=== PATIENT | male | born 1955 | race Two or more races ===

== ENCOUNTER 2023-05-03 09:45 | Inpatient (IN) | payer OTHER ==
[~2023-05-03] VITALS: Ht 162.6 cm; Wt 141.7 kg
[2023-05-03] MEDS ORDERED: ASPirin-EC 325mg tab PO ONE ×2 (09:46→10:45)
[2023-05-03] MEDS ORDERED: FUROSEMIDE 40 MG/4 ML VIAL IV ONE (10:45)
[2023-05-03 10:57] LABS: Basophils # (auto) 0 10 ^3/uL (0-0.2); Basophils % (auto) 0.7 % (0.0-2.0); Eosinophils # (auto) 0.5 10 ^3/uL (0-0.8); Eosinophils % (auto) 6.6 % (0.0-7.0); Hematocrit 48.4 % (41.0-53.0); Hemoglobin 15.7 g/dL (13.5-17.5); Lymphocytes # (auto) 1.3 10 ^3/uL (0.4-5.4); Mean Corpuscular Hemoglobin 29.8 pg (28.0-32.0); Mean Corpuscular Hgb Conc. 32.5 g/dL (32.0-36.0); Mean Corpuscular Volume 91.5 fL (80.0-100.0); Monocytes # (auto) 0.8 10 ^3/uL (0-1.3); Monocytes % (auto) 10.8 % (0.0-12.0); Neutrophils # (auto) 4.5 10 ^3/uL (1.6-8.6); Neutrophils % (auto) 63.9 % (37.0-80.0); Nucleated Red Blood Cells % 0.2 %; Red Blood Cells 5.29 10^6/uL (4.5-5.90); Red Cell Distribution Width 14.9 % (11.8-14.3); White Blood Cell 7.1 10^3/uL (4.4-10.8)
[2023-05-03 11:18] LABS: INR 1.15 (0.9-1.15)
[2023-05-03 11:33] VITALS: PULSE 75; RESP 20; O2SAT 86
[2023-05-03 11:51] LABS: Alanine Aminotransferase 18 U/L (7-40); Albumin 3.6 g/dL (3.2-4.8); Alkaline Phosphatase 107 U/L (46-116); Aspartate Aminotransferase 25 U/L (13-40); Blood Urea Nitrogen 12 mg/dL (9-23); Calcium 8.7 mg/dL (8.5-10.1); Carbon Dioxide 34 mmol/L (20-30); Glucose 117 mg/dL (74-106)
[2023-05-03 11:52] LABS: Bilirubin, Total 0.7 mg/dL (0.2-1.0); Total Protein 6.5 g/dL (5.7-8.2)
[2023-05-03] MEDS ORDERED: ALBUTEROL SULF 2.5 MG/0.5ML(0.5%) NEB SOLN NEB PRN (12:30)
[2023-05-03] MEDS ORDERED: ACETAMINOPHEN 325 MG TAB PO PRN (12:30)
[2023-05-03] MEDS ORDERED: MORPHINE SULFATE INJ 2 MG/ml SYRG IV PRN (12:30)
[2023-05-03] MEDS ORDERED: NITROGLYCERIN 0.4 MG SL TAB SL PRN (12:30)
[2023-05-03 12:41] LABS: Anion Gap 2 (5-15); Chloride 102 mmol/L (98-107); Potassium 4.3 mmol/L (3.5-5.1); Sodium 138 mmol/L (136-145)
[2023-05-03 12:47] LABS: Lipase 26 U/L (12-53)
[2023-05-03 13:17] LABS: Triglycerides 88 mg/dL (< 150)
[2023-05-03 13:18] LABS: LDL Cholesterol 108 mg/dL (< 100)
[2023-05-03 13:19] LABS: Cholesterol 163 mg/dL (< 200); HDL Cholesterol 48 mg/dL (40-59)
[2023-05-03 13:40] LABS: Urine Bacteria FEW /hpf (None Seen); Urine Blood Negative /uL (Negative); Urine Clarity Clear (Clear); Urine Color Colorless (Yellow); Urine Mucus FEW (None Seen); Urine Protein, UAD Negative (Negative); Urine Specific Gravity 1.007 (1.001-1.035); Urine Urobilinogen Normal (Negative); Urine WBC 1 /hpf (0 - 3); Urine pH 5.5 (5.0-8.0)
[2023-05-03 15:11] VITALS: BP 112/68; PULSE 68; RESP 22; O2SAT 92
[2023-05-03 19:42] VITALS: O2SAT 92
[2023-05-03 21:00] VITALS: PULSE 69; RESP 19; O2SAT 91
[2023-05-03 22:00] VITALS: BP 118/71; PULSE 53; RESP 20; TEMP 98.4; O2SAT 92
[2023-05-04] VITALS (9 sets, daily range): BP systolic 100–132; BP diastolic 50–70; PULSE 60–82; RESP 19–20; TEMP 97.5–98.3; O2SAT 92–99
[2023-05-04 06:17] LABS: Basophils # (auto) 0 10 ^3/uL (0-0.2); Basophils % (auto) 0.7 % (0.0-2.0); Eosinophils # (auto) 0.5 10 ^3/uL (0-0.8); Eosinophils % (auto) 6.5 % (0.0-7.0); Hematocrit 46.5 % (41.0-53.0); Hemoglobin 14.9 g/dL (13.5-17.5); Lymphocytes # (auto) 1.4 10 ^3/uL (0.4-5.4); Lymphocytes % (auto) 19.2 % (10.0-50.0); Mean Corpuscular Hemoglobin 29.7 pg (28.0-32.0); Mean Corpuscular Volume 92.6 fL (80.0-100.0); Monocytes # (auto) 0.8 10 ^3/uL (0-1.3); Monocytes % (auto) 10.7 % (0.0-12.0); Neutrophils # (auto) 4.7 10 ^3/uL (1.6-8.6); Neutrophils % (auto) 62.9 % (37.0-80.0); Nucleated Red Blood Cells % 0.1 %; Red Blood Cells 5.02 10^6/uL (4.5-5.90); Red Cell Distribution Width 14.6 % (11.8-14.3); White Blood Cell 7.5 10^3/uL (4.4-10.8)
[2023-05-04] MEDS ORDERED: ENOXAPARIN SOD 40 MG/0.4 ML SYRINGE SC SCH (10:00)
[2023-05-04] MEDS: FUROSEMIDE 40 MG/4 ML VIAL IV SCH (11:03)
[2023-05-04] MEDS: ASPirin 81 mg TAB PO SCH (11:03)
[2023-05-04 20:34] LABS: Base Excess 7.8 mmol/L (-2.0-2.0)
[2023-05-04] MEDS: ENOXAPARIN SOD 150 MG/1 ML SYRINGE SC SCH (21:49)
[2023-05-05] VITALS (8 sets, daily range): BP systolic 94–123; BP diastolic 43–66; PULSE 71–95; RESP 18–20; TEMP 97.6–98.3; O2SAT 94–96
[2023-05-05] MEDS: ASPirin 81 mg TAB PO SCH (10:03)
[2023-05-05] MEDS: FUROSEMIDE 40 MG/4 ML VIAL IV SCH (10:03)
[2023-05-05] MEDS: ENOXAPARIN SOD 150 MG/1 ML SYRINGE SC SCH ×2 (10:03→22:01)
[2023-05-05] MEDS: dilTIAZem 120MG ER CAP PO SCH (10:03)
[2023-05-06] VITALS (12 sets, daily range): BP systolic 86–133; BP diastolic 39–76; PULSE 60–73; RESP 17–21; TEMP 97.4–98.5; O2SAT 90–96
[2023-05-06] MEDS: FUROSEMIDE 40 MG/4 ML VIAL IV SCH (09:09)
[2023-05-06] MEDS: dilTIAZem 120MG ER CAP PO SCH (09:10)
[2023-05-06] MEDS: ASPirin 81 mg TAB PO SCH (09:10)
[2023-05-06] MEDS: ENOXAPARIN SOD 150 MG/1 ML SYRINGE SC SCH (09:15)
[2023-05-06] MEDS ORDERED: FURO1TAB31 PO (12:08)
[2023-05-06] MEDS ORDERED: ALBUAER3 IN (12:08)
[2023-05-06] MEDS ORDERED: ASPI-463 PO (12:08)
[2023-05-06] MEDS ORDERED: DILT120T8 PO (12:08)
[2023-05-06] MEDS ORDERED: APIX5TAB PO (12:09)
[2023-05-06 13:07] LABS: Base Excess 10.6 mmol/L (-2.0-2.0)
[2023-05-06] MEDS: APIXABAN 5 MG TAB PO SCH (21:51)
[2023-05-07] VITALS (7 sets, daily range): BP systolic 103–117; BP diastolic 49–79; PULSE 50–78; RESP 16–22; TEMP 97.6–97.8; O2SAT 94–96
[2023-05-07 07:10] LABS: Calcium 8.8 mg/dL (8.7-10.4); Potassium 3.9 mmol/L (3.5-5.1)
[2023-05-07 07:16] LABS: Albumin 3.5 g/dL (3.2-4.8); BUN/Creatinine Ratio 24.6 (10.0-20.0)
[2023-05-07 07:17] LABS: Phosphorus 4.2 mg/dL (2.4-5.1)
[2023-05-07] MEDS: APIXABAN 5 MG TAB PO SCH (09:42)
[2023-05-07] MEDS: dilTIAZem 120MG ER CAP PO SCH (09:43)
[2023-05-07] MEDS: ASPirin 81 mg TAB PO SCH (09:43)
[2023-05-07] MEDS: FUROSEMIDE 40 MG/4 ML VIAL IV SCH (09:45)
== END 2023-05-07 19:45 | disposition home health service (06) | DRG 291 ==
LOC: ER 09:45 → TELE 12:31 → TELE-CENTR 20:30
PROVIDERS: ADMIT Nurse Practitioner Family; ATTEND Family Medicine
DX: I50.33 Acute on chronic diastolic (congestive) heart failure (principal); J96.01 Acute respiratory failure with hypoxia; E66.2 Morbid (severe) obesity with alveolar hypoventilation; Z68.44 Body mass index [BMI] 60.0-69.9, adult; I48.91 Unspecified atrial fibrillation; M25.512 Pain in left shoulder; R79.89 Other specified abnormal findings of blood chemistry; Z86.74 Personal history of sudden cardiac arrest; Z87.891 Personal history of nicotine dependence; Z98.84 Bariatric surgery status; Z71.3 Dietary counseling and surveillance
CPT/HCPCS: 36415; 36600; 71045; 73030; 78582; 80053; 80061; 80069; 81001; 82805; 83036; 83690; 83880; 84443; 84484; 85025; 85379; 85610; 85730; 86022; 93005; 93306; 93970; 96374; 99291; G0378